=== PATIENT | male | born 1940 | race Caucasian/White ===

== ENCOUNTER 2022-06-21 12:04 | Inpatient (IN) | payer OTHER, MEDICARE ==
[2022-06-21] MEDS ORDERED: GLUCAGON 1 MG/VIAL IM PRN (13:14)
[2022-06-21] MEDS ORDERED: D50W 25 GM/50 ML SYRINGE IV PRN (13:14)
[2022-06-21] MEDS ORDERED: D10W 125 ML IV PRN (13:19)
[2022-06-21] MEDS ORDERED: ALBUTEROL 2.5 MG/3 ML NEB SOL NEB PRN (13:21)
[2022-06-21] MEDS ORDERED: ONDANSETRON 4 MG (ODT) TAB PO PRN (14:00)
[2022-06-21] MEDS ORDERED: DIPHENHYDRAMINE 25 MG TAB/CAP PO PRN (14:00)
[2022-06-21] MEDS ORDERED: POLYETHYL GLY 3350 17 GM/DOSE PO PRN (14:00)
[2022-06-21] MEDS ORDERED: LOPERAMIDE HCL 2 MG CAPSULE PO PRN (14:00)
[2022-06-21] MEDS ORDERED: ONDANSETRON 4 MG/2 ML VIAL IV PRN (14:00)
[2022-06-21] MEDS: LEVALBUTEROL 1.25 MG/3 ML NEB IH SCH ×2 (14:00→20:40)
[2022-06-21] MEDS ORDERED: ACETAMINOPHEN 325 MG TABLET PO PRN (14:00)
[2022-06-21] MEDS: IPRATROPIUM BROM 0.5MG/2.5ML IH SCH ×2 (14:00→20:00)
[2022-06-21] MEDS: FUROSEMIDE 100 MG in NA CHLORIDE 0.9% 90 ML IV SCH (14:24)
[2022-06-21] MEDS: METHYLPREDNISOLONE 40 MG INJ IV SCH ×3 (14:34→23:31)
[2022-06-21 14:37] LABS: Absolute Lymphocytes (CBC) 0.5 K/uL (0.7-4.9); Hematocrit 34.6 % (39.6-49.0); Lymphocytes % 6.8 % (15.3-44.8); MCV 75.9 fL (80-100); MPV 8.1 fL (7.6-11.3); RBC Red Blood Cell Count 4.56 M/uL (4.33-5.43)
[2022-06-21 14:42] LABS: Potassium 3.6 mEq/L (3.5-5.1)
--- NOTE | 2022-06-21 14:53 | RAD REPORT ---
EXAM DESCRIPTION: RAD - Chest Pa And Lat (2 Views) - 06/21/2022 2:44 pm CLINICAL HISTORY: copd COMPARISON: CHEST PA AND LAT 2 VIEW dated 01/11/2009; CHEST PA AND LAT 2 VIEW dated 09/14/2004 FINDINGS: Lines: None. Lungs: Opacities are present the right lung base which are not well defined . Pleural: New small to moderate right and probably tiny left pleural effusions. Cardiac: Cardiomegaly. Mediastinum: Within normal limits. Bones: No acute fractures. Other: None IMPRESSION: Small effusions, right greater than left, of uncertain etiology. There is presumably david st some component of atelectasis due to the flow, however underlying pneumonia or a lesion could also be present. Suggest follow-up imaging to ensure resolution.
[2022-06-21 15:11] LABS: Albumin 3.5 g/dL (3.4-5.0); Bilirubin Direct 0.3 mg/dL (0-0.2); Bilirubin Total 0.8 mg/dL (0.2-1.0); Magnesium 1.3 mg/dL (1.6-2.4); Phosphorus 3.8 mg/dL (2.5-4.9); Protein, Total 6.7 g/dL (6.4-8.2); Thyroid Stimulating Hormone 1.59 uIU/mL (0.358-3.740)
[2022-06-21 16:08] LABS: Specific Gravity 1.012 (1.005-1.030); Urine Bilirubin NEGATIVE (Negative); Urine Blood Negative (Negative); Urine Clarity Clear (Clear); Urine Color Light-Yellow (Yellow); Urine Glucose NEGATIVE (Negative); Urine Protein NEGATIVE (Negative); Urine Urobilinogen Normal (Normal)
--- NOTE | 2022-06-21 16:29 | RAD REPORT ---
EXAM DESCRIPTION: USExtrem Venous W Compress Bil06/21/2022 4:13 pm CLINICAL HISTORY: Leg swelling COMPARISON: none FINDINGS: The common femoral, superficial femoral, greater saphenous, popliteal and posterior tibial veins bilaterally are compressible and demonstrate augmentation. Doppler demonstrates good flow. Grayscale, color and spectral analysis performed on all vessels IMPRESSION: No evidence of deep venous thrombosis involving either lower extremity.
[2022-06-21] MEDS: INSULIN -REGULAR HUMAN 50 UNIT/0.5 ML ML SQ SCH ×2 (16:30→21:07)
[2022-06-21 17:00] LABS: UR MICROALBUMIN 0.6 mg/dL (< 1.9)
[2022-06-21] MEDS ORDERED: HOME MED 1 EA UNK (Fluticasone/Umeclidin/Vilanter [Trelegy Ellipta 100-62.5-25] Blst.W.Dev IH PRN (17:33)
[2022-06-21] MEDS ORDERED: PNEUMOCOCCAL VACCINE 0.5 ML IMVAC ONE (18:00)
[2022-06-21] MEDS: cilostazoL 100 MG TAB PO SCH (21:00)
[2022-06-22] MEDS: IPRATROPIUM BROM 0.5MG/2.5ML IH SCH ×4 (02:00→19:45)
[2022-06-22] MEDS: LEVALBUTEROL 1.25 MG/3 ML NEB IH SCH ×4 (02:00→19:45)
[2022-06-22] MEDS: METHYLPREDNISOLONE 40 MG INJ IV SCH ×3 (06:38→16:57)
[2022-06-22] MEDS: INSULIN -REGULAR HUMAN 50 UNIT/0.5 ML ML SQ SCH ×4 (07:30→20:38)
[2022-06-22] MEDS: CLOPIDOGREL 75 MG TABLET PO SCH (09:00)
[2022-06-22] MEDS: ATORVASTATIN 40 MG TAB PO SCH (09:00)
[2022-06-22] MEDS: PRIMIDONE 50 MG TAB PO SCH (09:00)
[2022-06-22] MEDS: TAMSULOSIN 0.4 MG SR CAP PO SCH (09:00)
[2022-06-22] MEDS: cilostazoL 100 MG TAB PO SCH ×2 (09:00→20:38)
[2022-06-22] MEDS: ENOXAPARIN 30 MG/0.3 ML SQ SCH (10:01)
[2022-06-22] MEDS: FUROSEMIDE 100 MG in NA CHLORIDE 0.9% 90 ML IV SCH (10:04)
--- NOTE | 2022-06-22 11:33 | RAD REPORT ---
EXAM DESCRIPTION: US - Renal Ultrasound-Complete - 06/22/2022 11:19 am CLINICAL HISTORY: MARII Flank pain COMPARISON: <Comparisons> FINDINGS: Both kidneys mildly echogenic. There is evidence of small benign cysts bilaterally. The right kidney measures 9.6 x 5.0 x 3.7 cm. Calcification is seen likely nonobstructing renal calcu vishnu. No hydronephrosis. The left kidney measures 9.6 x 5.0 x 3.8 cm.. No hydronephrosis, focal mass or perinephric fluid. The urinary bladder is incompletely distended without gross abnormality seen. IMPRESSION: Mildly echogenic kidneys suggests underlying medical renal disease. Calcification the right kidney without hydronephrosis probably represents a stone.
--- NOTE | 2022-06-22 12:36 | CON ---
Date of Consultation: 06/22/2022 Reason For Consultation: Elevated BUN and creatinine, fluid management. History Of Present Illness: This is a pleasant 82-year-old gentleman with significant past medical h istory of rheumatoid arthritis on Orencia, COPD, peripheral vascular disease, diabetes complicated wi th neuropathy, no retinopathy, hypertension, hyperlipidemia, the patient was in his regular state of health. According to him over the last 1 year, his shortness of breath getting worse on any activity without significant orthopnea. No chest pain. The patient denied taking nonsteroid. No recent exp osure to IV contrast. The patient found to have elevation in BUN and creatinine. Creatinine 1.8 wit h GFR of 36. For that reason, we have been consulted. Past Medical History: Includes; 1.Diabetes complicated with neuropathy, no retinopathy. 2.Hyperlipidemia. 3.COPD, advanced. 4.PAD. 5.Pulmonary hypertension. 6.Rheumatoid arthritis, on Orencia. 7.Chronic kidney disease. Allergies: NO KNOWN DRUG ALLERGIES. Social History: Ex-smoker. Denied alcohol. Denied drugs abuse. Family History: Positive for hypertension. Review of Systems: Head and Neck: No red eye. No ear pain. GI: No nausea. No vomiting. : No polyuria. No dysuria. No hematuria. Enterprise Account Executive: Not applicable. Respiratory: Has shortness of breath. Cardiovascular: Has decreased exertional tolerance. Endocrine: No polydipsia. Skin: No rash. Neuro: Has neuropathy. Musculoskeletal: No joint pain. Physical Examination: Vital Signs: When I saw the patient; blood pressure 125/70, pulse of 95, afebrile. Chest: Crackles bilateral. Heart: S1, S2. Systolic murmur. Abdomen: Soft, nontender. Extremities: on the leg +1. Neurologic: Alert. No focality. Laboratory Data: Sodium 135, potassium 3.6, bicarb 23, BUN 51, creatinine 1.8, GFR 36, calcium 8.7. WBC 7.5, hemoglobin 11.1. Urinalysis negative for infection. PC ratio 0.07. Renal ultrasound; 9.6 /9.6, no hydronephrosis, echogenic kidney. Chest x-ray, cardiomegaly with congestion. Current Medications: The patient on include Lasix drip, breathing treatment, thiamine, Plavix, Loven ox, atorvastatin, breathing treatment, Solu-Medrol. Assessment And Plan: 1.Acute kidney injury secondary to cardiorenal syndrome/progression of diabetes, nephropathy. To ru le out any rheumatoid arthritis induced with the presence of anemia to rule out any light chain disea se, we will send for full workup including serology and serum protein electrophoresis. With finding on the ultrasound, it looked more chronic. Currently, the patient on the over volume side. I agree with Lasix drip, but I am going to decrease it to 10 mg and we will follow up. Acute kidney injury o n chronic kidney disease. To rule out any autoimmune disease in the presence of rheumatoid arthritis , mostly it is secondary to diabetes nephropathy, hypertension nephrosclerosis, over volume, I am goi ng to go ahead and continue on the Lasix drip and we will decrease it to 10 mg and we will monitor th e patient. 2.Hypertension, controlled, currently blood pressure on the lower side. We will utilize blood press ure for more diuresis. 3.Chronic kidney disease, small size kidney with acute kidney injury as above. We will send for PTH to confirm the chronicity. Continue Lasix and we will follow up. 4.Shortness of breath, multifactorial, secondary to chronic obstructive pulmonary disease exacerbati on more than congestive heart failure. Continue Lasix drip. Continue breathing treatment. We will follow up with primary. 5.Edema in the lower extremity. No significant proteinuria. TSH within normal limit. Possible sec ondary to . I am going to start the patient on spironolactone and we will follow up the ji gordon. 6.Hypokalemia. We will start the patient on spironolactone. 7.Possible pulmonary hypertension. Start spironolactone. MICH/MODL Voice ID: [id number] Report ID: [id number]
--- NOTE | 2022-06-22 12:43 | P.PN ---
Subjective Date of Service: 06/22/22 Chief Complaint: DYSPNEA, EDEMA. Subjective: Improving LOW HAS IMRPOVED SOME. HE HAS SEVERE COPD FROM HEAVY SMOKING AND COR PULMONALE. Review of Systems 10-point ROS is otherwise unremarkable General: Weakness, Malaise Respiratory: Shortness of Breath Physical Examination - Vital Signs Temperature: 97.2 F Blood Pressure: 125/70 Pulse: 95 Respirations: 18 Pulse Ox (%): 97 - Physical Exam General: Oriented x3, Moderate distress HEENT: Atraumatic, PERRLA, EOMI Neck: Supple, JVD not distended Respiratory: Clear to auscultation bilaterally, Normal air movement Cardiovascular: Regular rate/rhythm, Normal S1 S2, Edema Gastrointestinal: Normal bowel sounds, No tenderness Musculoskeletal: No tenderness Integumentary: No rashes Neurological: Normal speech, Normal tone, Normal affect Lymphatics: No axilla or inguinal lymphadenopathy - Studies Laboratory Data (last 24 hrs) 06/21/22 14:13: Phosphorus 3.8, Magnesium 1.3 L, Total Bilirubin 0.8, AST 26, ALT 29, Alkaline Phosphatase 135 H 06/21/22 14:13: APTT 28.0 06/21/22 14:13: Sodium 135 L, Potassium 3.6, BUN 51 H, Creatinine 1.85 H, Glucose 153 H 06/21/22 14:13: WBC 7.50, Hgb 11.1 L, Hct 34.6 L, Plt Count 288 Medications List Reviewed: Yes Assessment And Plan - Current Problems (Diagnosis) (1) Cor pulmonale Current Visit: Yes Status: Acute Plan: LASIX DRIP THIS IS SHORT TERM ANSWER. SUPERVISOR IRRIGATION PROGNOSIS IS POOR. HE WILL CONTINUE TO HAVE THE SYMPTOMS. HE IS AWARE. (2) Acute on chronic renal failure Current Visit: Yes Status: Acute Plan: DR. CHANCE Espinoza ON CASE HE AGREES WITH THERAPY SONGOGRM DONE. (3) CKD (chronic kidney disease) stage 3, GFR 30-59 ml/min Current Visit: Yes Status: Chronic Plan: CREAT ABOUT 1.5 TO 2. Orders (last 24 hrs) 06/21/22 Lunch 60g Consistent Carbohydrate (ADA 1800/2000) [DIET] 06/21/22 13:03 Cardiac Monitoring (telemetry) CONT Glucose Monitoring ACHS Magnesium Replacement 0600 Potassium Replacement 0600 SCD [Sequential Compression Device] NOW Oxygen Nasal Cannula 2 lpm 06/21/22 13:06 EKG Electrocardiogram [EKG] Stat 06/21/22 13:14 Glucagon [Glucagen] 1 mg IM 1X PRN 06/21/22 13:15 Methylpred Na Suc [Solu-Medrol] 40 mg IV Q6HR 06/21/22 13:19 D10w [Dextrose 10% Water IV Soln.] 125 ml IV PRN 06/21/22 13:30 Furosemide [Lasix] 100 mg Na Chloride 0.9% [Sodium Chloride] 90 ml IV Q20H 06/21/22 14:00 Acetaminophen [Tylenol -Tablet] 650 mg PO Q6HP PRN Diphenhydramine [Benadryl Tab/Cap] 25 mg PO BEDTIME PRN PRN Ipratropium Neb [Atrovent Neb] 0.5 mg IH [id number] Levalbuterol [Xopenex] 1.25 mg IH [id number] Loperamide [Imodium] 4 mg PO Q4HP PRN Ondansetron [Zofran] 4 mg IV Q6HP PRN Ondansetron [Zofran] 4 mg PO Q6HP PRN Polyethyl Gly 3350 [Glycolax] 17 gm PO BEDTIME PRN PRN 06/21/22 14:13 Vitamin D,1,25 Dihydroxy Routine 06/21/22 16:30 Insulin -Regular Human [Novolin -R] See Protocol SQ ACHS 06/21/22 17:33 Fluticasone/Umeclidin/Vilanter [Trelegy Ellipta 100-62.5-25] 1 puff IH PRN PRN 06/21/22 18:20 Blood Culture Stat 06/21/22 21:00 cilostazoL [Pletal] 100 mg PO BID 06/22/22 05:52 SBAR Routine 06/22/22 09:00 Atorvastatin Calcium [Lipitor] 40 mg PO DAILY Clopidogrel Bisulfate [Plavix] 75 mg PO DAILY Enoxaparin Sodium [Lovenox 30 MG INJ] 30 mg SQ DAILY Primidone [Mysoline] 50 mg PO DAILY Tamsulosin [Flomax] 0.4 mg PO DAILY 06/22/22 13:05 Basic Metabolic Panel DAILY CBC with Automated Diff DAILY 06/23/22 13:05 Basic Metabolic Panel DAILY CBC with Automated Diff DAILY 06/24/22 13:05 Basic Metabolic Panel DAILY CBC with Automated Diff DAILY 06/25/22 13:05 Basic Metabolic Panel DAILY CBC with Automated Diff DAILY
--- NOTE | 2022-06-22 12:51 | ECHO ---
HEIGHT: 5 ft 10 in WEIGHT: 151 lb 3.2 oz DATE OF STUDY: 06/22/[address]: Jb Martinez MD 2-DIMENSIONAL: YES M.MODE: YES DOPPLER: YES COLOR FLOW: YES TDS: NO PORTABLE: YES DEFINITY: NO BUBBLE STUDY: NO DIAGNOSIS: DYSPNEA CARDIAC HISTORY: CATHERIZATION: SURGERY: PROSTHETIC VALVE: PACEMAKER: MEASUREMENTS (cm) DIASTOLIC (NORMALS) SYSTOLIC (NORMALS) IVSd 1.2 (0.6-1.2) LA Diam 3.7 (1.9-4.0) LVEF 11% LVIDd 5.0 (3.5-5.7) LVIDs 4.8 (2.0-3.5) %FS 5% LVPWd 1.0 (0.6-1.2) Ao Diam 2.7 (2.0-3.7) 2 DIMENSIONAL ASSESSMENT: RIGHT ATRIUM: NORMAL LEFT ATRIUM: NORMAL RIGHT VENTRICLE: NORMAL LEFT VENTRICLE: NORMAL SIZE TRICUSPID VALVE: NORMAL MITRAL VALVE: MITRAL ANNULAR CALCIFICATION PULMONIC VALVE: NORMAL AORTIC VALVE: STENOTIC PERICARDIAL EFFUSION: NONE AORTIC ROOT: NORMAL LEFT VENTRICULAR WALL MOTION: SEVERE GLOBAL HYPOKINESIS. DOPPLER/COLOR FLOW: SEVERE AORTIC STENOSIS. AORTIC VALVE AREA 0.6 CENTIMETERS SQUARED. MODERATE MITRAL AND TRICUSPID REGURGITATION. COMMENTS: 1. SEVERE GLOBAL HYPOKINESIS. 2. LEFT VENTRICULAR EJECTION FRACTION 11% 3. MODERATE MITRAL AND TRICUSPID REGURGITATION. 4. SEVERE AORTIC STENOSIS. AORTIC VALVE AREA 0.6 CENTIMETERS SQUARED. 5. MODERATE TO SEVERE PULMONARY HYPERTENSION. TECHNOLOGIST: Krystina ROCHE
[2022-06-22] MEDS: TRAZODONE 50 MG TABLET PO SCH (22:56)
[2022-06-22 23:43] LABS: Specific Gravity 1.013 (1.005-1.030); Urine Bilirubin NEGATIVE (Negative); Urine Blood Negative (Negative); Urine Clarity Clear (Clear); Urine Color Yellow (Yellow); Urine Glucose NEGATIVE (Negative); Urine Protein NEGATIVE (Negative); Urine Urobilinogen Normal (Normal)
[2022-06-22 23:50] LABS: UR PROTEIN 18.4 mg/dL (<11.9); Urine Protein/Creatinine Ratio 0.2 ratio (<0.15)
[2022-06-23] MEDS: METHYLPREDNISOLONE 40 MG INJ IV SCH ×5 (00:29→23:32)
[2022-06-23] MEDS: IPRATROPIUM BROM 0.5MG/2.5ML IH SCH ×4 (02:00→20:45)
[2022-06-23] MEDS: LEVALBUTEROL 1.25 MG/3 ML NEB IH SCH ×4 (02:00→20:45)
[2022-06-23 06:28] LABS: Absolute Lymphocytes (CBC) 0.4 K/uL (0.7-4.9); Hematocrit 30.9 % (39.6-49.0); MCV 74.8 fL (80-100); MPV 8.1 fL (7.6-11.3); RBC Red Blood Cell Count 4.13 M/uL (4.33-5.43)
[2022-06-23 07:09] LABS: Rheumatoid Factor NEG (NEG)
[2022-06-23 07:14] LABS: Albumin 3.1 g/dL (3.4-5.0); Ferritin 25.7 ng/mL (26-388); Phosphorus 5.1 mg/dL (2.5-4.9); Potassium 3.4 mEq/L (3.5-5.1); Thyroid Stimulating Hormone 0.887 uIU/mL (0.358-3.740); Uric Acid 13.4 mg/dL (3.5-7.2)
[2022-06-23] MEDS: cilostazoL 100 MG TAB PO SCH ×2 (09:00→20:50)
[2022-06-23] MEDS: PRIMIDONE 50 MG TAB PO SCH (09:00)
[2022-06-23] MEDS: CLOPIDOGREL 75 MG TABLET PO SCH (09:00)
[2022-06-23] MEDS: ATORVASTATIN 40 MG TAB PO SCH (09:00)
[2022-06-23] MEDS ORDERED: POTASSIUM CL SA 10 MEQ TAB PO ONE (09:00)
[2022-06-23] MEDS: TAMSULOSIN 0.4 MG SR CAP PO SCH (09:00)
[2022-06-23 09:02] LABS: Absolute Lymphocytes (CBC) 0.5 K/uL (0.7-4.9); Lymphocytes % 5.5 % (15.3-44.8); MCV 75.2 fL (80-100); MPV 8.2 fL (7.6-11.3); RBC Red Blood Cell Count 4.66 M/uL (4.33-5.43)
[2022-06-23 09:13] LABS: Potassium 3.8 mEq/L (3.5-5.1)
[2022-06-23 10:02] LABS: Blood Morphology Comment NOTED (NOT SEEN); Platelet Estimate ADEQ; Poikilocytosis 2+; Polychromasia SLIGHT; White Blood Cell Scan OK (OK)
[2022-06-23 10:03] LABS: Burr Cells 2+
[2022-06-23] MEDS: FUROSEMIDE 100 MG in NA CHLORIDE 0.9% 90 ML IV SCH (10:03)
[2022-06-23] MEDS: INSULIN -REGULAR HUMAN 50 UNIT/0.5 ML ML SQ SCH ×4 (10:15→20:49)
[2022-06-23] MEDS: SPIRONOLACTONE 25 MG TABLET PO SCH (10:15)
[2022-06-23] MEDS: ENOXAPARIN 30 MG/0.3 ML SQ SCH (10:16)
--- NOTE | 2022-06-23 12:39 | P.PN ---
Subjective Date of Service: 06/23/22 Chief Complaint: DYSPNEA, EDEMA. Subjective: Other (he reports no increase in shortness of breath) Physical Examination - Vital Signs Temperature: 97.8 F Blood Pressure: 101/66 Pulse: 97 Respirations: 14 Pulse Ox (%): 98 - Physical Exam General: Other (chronically ill-appearing) HEENT: Atraumatic, Normocephalic Neck: Supple Respiratory: Other (symmetric chest expansion) Cardiovascular: No rubs, No murmurs Gastrointestinal: Soft and benign, No guarding Musculoskeletal: No clubbing Integumentary: No warmth Neurological: Normal tone Urinary: Other (no bladder distention) External genitalia: Deferred Rectal: Deferred - Studies Laboratory Data (last 24 hrs) 06/23/22 08:47: Magnesium 1.5 L 06/23/22 08:47: Sodium 131 L, Potassium 3.8, BUN 72 H, Creatinine 2.36 H, Glucose 249 H 06/23/22 08:47: WBC 9.30, Hgb 11.1 L D, Hct 35.0 L, Plt Count 282 06/23/22 05:35: Sodium 134 L, Potassium 3.4 L, BUN 70 H, Creatinine 2.14 H, Glucose 140 H, Uric Acid 13.4 H, Phosphorus 5.1 H 06/23/22 05:35: WBC 6.60, Hgb 9.8 L, Hct 30.9 L, Plt Count 239 Medications List Reviewed: Yes Assessment And Plan - Plan 1. Acute kidney injury secondary to cardiorenal syndrome/progression of diabetic nephropathy. continue Lasix. Monitor renal panel. 2. CKD3. Monitor renal panel. 3. Htn. BP low normal. Diuretics via lasix + brianna. 4. BLE edema. Lasix + brianna. Low Na diet < 2g/day. 5. Chronic systolic heart failure, severe , severe pulmonary hypertension. TTE on 06/22/2022 showed low LVEF at 11%, severe aortic stenosis, severe pulmonary hypertension. Started on spironolactone. Follow-up random urine chemistry to assess for secondary hyperaldosteronism. Do not restrict by mouth fluid intake unless he develops hyponatremia less than 130 meq per liter to minimize MARII from diuretics. 6. Anemia. Monitor CBC.
[2022-06-23 15:21] LABS: Potassium 4.3 mEq/L (3.5-5.1)
[2022-06-23 15:26] VITALS: BMI 22.1
[2022-06-23] MEDS ORDERED: SIMETHICONE 80 MG TAB PO PRN (15:56)
[2022-06-23] MEDS ORDERED: Magnesium Sulfate 2gm IVPB 2 G/50 ML BAG IV ONE (16:00)
[2022-06-23] MEDS: TRAZODONE 50 MG TABLET PO SCH (20:49)
[2022-06-23] MEDS ORDERED: TRAZODONE 50 MG TABLET PO SCH (21:00)
--- NOTE | 2022-06-23 22:11 | P.PN ---
Subjective Date of Service: 06/23/22 Chief Complaint: DYSPNEA, EDEMA. Subjective: Worsening LOW HAS IMRPOVED SOME. HE HAS SEVERE COPD FROM HEAVY SMOKING AND COR PULMONALE. LOW IS SHORT OF BREATH AND NOT GETTING BETTER. Review of Systems 10-point ROS is otherwise unremarkable Respiratory: Shortness of Breath, SOB with Excertion Physical Examination - Vital Signs Temperature: 97.8 F Blood Pressure: 121/83 Pulse: 120 Respirations: 22 Pulse Ox (%): 98 - Physical Exam General: Oriented x3, Moderate distress HEENT: Atraumatic, PERRLA, EOMI Neck: Supple, JVD not distended Respiratory: Diminished Cardiovascular: Regular rate/rhythm, Normal S1 S2 Gastrointestinal: Normal bowel sounds, No tenderness Musculoskeletal: No tenderness Integumentary: No rashes Neurological: Normal speech, Normal tone, Normal affect Lymphatics: No axilla or inguinal lymphadenopathy - Studies Laboratory Data (last 24 hrs) 06/23/22 14:56: Sodium 130 L, Potassium 4.3 D, BUN 78 H, Creatinine 2.76 H, Glucose 264 H 06/23/22 08:47: Magnesium 1.5 L 06/23/22 08:47: Sodium 131 L, Potassium 3.8, BUN 72 H, Creatinine 2.36 H, Glucose 249 H 06/23/22 08:47: WBC 9.30, Hgb 11.1 L D, Hct 35.0 L, Plt Count 282 06/23/22 05:35: Sodium 134 L, Potassium 3.4 L, BUN 70 H, Creatinine 2.14 H, Glucose 140 H, Uric Acid 13.4 H, Phosphorus 5.1 H 06/23/22 05:35: WBC 6.60, Hgb 9.8 L, Hct 30.9 L, Plt Count 239 Medications List Reviewed: Yes Assessment And Plan - Current Problems (Diagnosis) (1) Cor pulmonale Current Visit: Yes Status: Acute Plan: LASIX DRKATELYN THIS IS SHORT TERM ANSWER. [facility] PROGNOSIS IS POOR. HE WILL CONTINUE TO HAVE THE SYMPTOMS. HE IS AWARE. (2) Acute on chronic renal failure Current Visit: Yes Status: Acute Plan: DR. CHANCE Espinoza ON CASE HE AGREES WITH THERAPY SONGOGRM DONE. (3) CKD (chronic kidney disease) stage 3, GFR 30-59 ml/min Current Visit: Yes Status: Chronic Plan: CREAT ABOUT 1.5 TO 2. Orders (last 24 hrs) 06/21/22 Lunch 60g Consistent Carbohydrate (ADA ) [DIET] 06/21/22 13:03 Cardiac Monitoring (telemetry) CONT Glucose Monitoring ACHS Magnesium Replacement 0600 Potassium Replacement 0600 SCD [Sequential Compression Device] NOW Oxygen Nasal Cannula 2 lpm 06/21/22 13:06 EKG Electrocardiogram [EKG] Stat 06/21/22 13:14 Glucagon [Glucagen] 1 mg IM 1X PRN 06/21/22 13:15 Methylpred Na Suc [Solu-Medrol] 40 mg IV Q6HR 06/21/22 13:19 D10w [Dextrose 10% Water IV Soln.] 125 ml IV PRN 06/21/22 13:30 Furosemide [Lasix] 100 mg Na Chloride 0.9% [Sodium Chloride] 90 ml IV Q20H 06/21/22 14:00 Acetaminophen [Tylenol -Tablet] 650 mg PO Q6HP PRN Diphenhydramine [Benadryl Tab/Cap] 25 mg PO BEDTIME PRN PRN Ipratropium Neb [Atrovent Neb] 0.5 mg IH [id number] Levalbuterol [Xopenex] 1.25 mg IH [id number] Loperamide [Imodium] 4 mg PO Q4HP PRN Ondansetron [Zofran] 4 mg IV Q6HP PRN Ondansetron [Zofran] 4 mg PO Q6HP PRN Polyethyl Gly 3350 [Glycolax] 17 gm PO BEDTIME PRN PRN 06/21/22 14:13 Vitamin D,1,25 Dihydroxy Routine 06/21/22 16:30 Insulin -Regular Human [Novolin -R] See Protocol SQ ACHS 06/21/22 17:33 Fluticasone/Umeclidin/Vilanter [Trelegy Ellipta 100-62.5-25] 1 puff IH PRN PRN 06/21/22 18:20 Blood Culture Stat 06/21/22 21:00 cilostazoL [Pletal] 100 mg PO BID 06/22/22 05:52 SBAR Routine 06/22/22 09:00 Atorvastatin Calcium [Lipitor] 40 mg PO DAILY Clopidogrel Bisulfate [Plavix] 75 mg PO DAILY Enoxaparin Sodium [Lovenox 30 MG INJ] 30 mg SQ DAILY Primidone [Mysoline] 50 mg PO DAILY Tamsulosin [Flomax] 0.4 mg PO DAILY 06/22/22 13:05 Basic Metabolic Panel DAILY CBC with Automated Diff DAILY 06/23/22 13:05 Basic Metabolic Panel DAILY CBC with Automated Diff DAILY 06/24/22 13:05 Basic Metabolic Panel DAILY CBC with Automated Diff DAILY 06/25/22 13:05 Basic Metabolic Panel DAILY CBC with Automated Diff DAILY (4) Aortic stenosis Current Visit: Yes Status: Chronic Plan: CRITICAL. 0.6 CM SQ. HE IS NOT SURGICAL CANDIDATE. HE MAY NOT DO WELL WITH SURGERY OR PROCEDURE. HE KNOWS HE WILL GO INTO RENAL FAILURE AND ESRD WITH HD. HE WILL DECIDE BY AM.
[2022-06-24] MEDS: LEVALBUTEROL 1.25 MG/3 ML NEB IH SCH ×2 (01:55→08:03)
[2022-06-24] MEDS: IPRATROPIUM BROM 0.5MG/2.5ML IH SCH ×2 (01:55→08:03)
[2022-06-24 03:31] LABS: Absolute Lymphocytes (CBC) 0.2 K/uL (0.7-4.9); Hematocrit 32.4 % (39.6-49.0); Lymphocytes % 2.4 % (15.3-44.8); MCV 75.1 fL (80-100); MPV 8.1 fL (7.6-11.3); RBC Red Blood Cell Count 4.32 M/uL (4.33-5.43)
[2022-06-24 04:01] LABS: Albumin 3.2 g/dL (3.4-5.0); Phosphorus 5.2 mg/dL (2.5-4.9); Potassium 4.1 mEq/L (3.5-5.1)
[2022-06-24] MEDS: METHYLPREDNISOLONE 40 MG INJ IV SCH (06:19)
[2022-06-24] MEDS: INSULIN -REGULAR HUMAN 50 UNIT/0.5 ML ML SQ SCH (07:30)
[2022-06-24 08:25] VITALS: O2SAT 95
[2022-06-24 08:49] VITALS: BP 96/59; TEMP 98
[2022-06-24] MEDS ORDERED: FUROSEMIDE 40 MG TABLET PO SCH (09:00)
[2022-06-24] MEDS: ATORVASTATIN 40 MG TAB PO SCH (09:00)
[2022-06-24] MEDS: cilostazoL 100 MG TAB PO SCH (09:00)
[2022-06-24] MEDS: TAMSULOSIN 0.4 MG SR CAP PO SCH (09:00)
[2022-06-24] MEDS: PRIMIDONE 50 MG TAB PO SCH (09:00)
[2022-06-24] MEDS: CLOPIDOGREL 75 MG TABLET PO SCH (09:00)
[2022-06-24] MEDS: SPIRONOLACTONE 25 MG TABLET PO SCH (09:00)
[2022-06-24] MEDS: ENOXAPARIN 30 MG/0.3 ML SQ SCH (09:29)
--- NOTE | 2022-06-24 09:44 | P.DS ---
Admission Date: 06/23/22 Discharge Date: 06/24/22 Disposition: ROUTINE DISCHARGE Discharge Condition: SERIOUS Reason for Admission: DYSPNEA, EDEMA. - Problems (1) Cor pulmonale Current Visit: Yes Status: Acute (2) Acute on chronic renal failure Current Visit: Yes Status: Acute (3) CKD (chronic kidney disease) stage 3, GFR 30-59 ml/min Current Visit: Yes Status: Chronic (4) Aortic stenosis Current Visit: Yes Status: Chronic Brief History of Present Illness: Cullen is a former heavy smoker who has severe copd, cor pulmonale and on echo we found he has critical aortic stenosis. I explained to him that TAVR procedure can be done but during that he most likely will go into severe renal failure and may end up on dialysis. It is still possible to do. He says at 82 with severe copd he does not want anything done. He is stable to go home with poor prognosis. He has DNR status at home. Vital Signs/Physical Exam: Temp Pulse Resp BP Pulse Ox 98.0 F 104 H 18 96/59 L 93 06/24/22 08:00 06/24/22 08:00 06/24/22 08:00 06/24/22 08:00 06/24/22 08:00 Laboratory Data at Discharge: WBC 9.50 thou/uL (4.3-10.9) 06/24/22 03:12 Hgb 10.5 g/dL (13.6-17.9) L 06/24/22 03:12 Hct 32.4 % (39.6-49.0) L 06/24/22 03:12 Plt Count 230 thou/uL (152-406) 06/24/22 03:12 APTT 28.0 SECONDS (24.3-36.9) 06/21/22 14:13 Sodium Cancelled 06/24/22 05:00 Potassium Cancelled 06/24/22 05:00 BUN Cancelled 06/24/22 05:00 Creatinine Cancelled 06/24/22 05:00 Glucose Cancelled 06/24/22 05:00 Uric Acid 13.4 mg/dL (3.5-7.2) H 06/23/22 05:35 Phosphorus 5.2 mg/dL (2.5-4.9) H 06/24/22 03:12 Magnesium 2.0 mg/dL (1.6-2.4) 06/24/22 03:12 Total Bilirubin 0.8 mg/dL (0.2-1.0) 06/21/22 14:13 AST 26 U/L (15-37) 06/21/22 14:13 ALT 29 U/L (16-61) 06/21/22 14:13 Alkaline Phosphatase 135 U/L (45-117) H 06/21/22 14:13 Home Medications: Albuterol Sulfate 1.25 mg NEB PRN PRN 06/21/22 Atorvastatin Calcium 40 mg PO DAILY 06/21/22 Clopidogrel Bisulfate [Plavix*] 75 mg PO DAILY 06/21/22 Fluticasone/Umeclidin/Vilanter [Trelegy Ellipta 100-62.5-25] 1 puff IH PRN PRN 06/21/22 Furosemide 40 mg PO DAILY 06/21/22 Prednisone [Sterapred Ds] 10 mg PO DAILY 06/21/22 Primidone 50 mg PO DAILY 06/21/22 Spironolactone 25 mg PO DAILY 06/21/22 Tamsulosin [Flomax*] 0.4 mg PO DAILY 06/21/22 cilostazoL [Cilostazol] 100 mg PO BID 06/21/22 Trazodone [Desyrel*] 50 mg PO BEDTIME #90 06/24/22 New Medications: Trazodone [Desyrel*] 50 mg PO BEDTIME #90
[2022-06-26 12:08] LABS: Vitamin D 1,25-Dihydroxy Total 25 pg/mL (18-72); Vitamin D,1,25-OH2, D2 <8 pg/mL
[2022-06-27 22:01] LABS: Albumin, (SPE) 3.2 g/dL (3.8-4.8); Alpha-1-Globulins 0.4 g/dL (0.2-0.3); Alpha-2-Globulins 0.5 g/dL (0.5-0.9); Gamma Globulins 0.6 g/dL (0.8-1.7); INTERPRETATION REPORT
== END 2022-06-24 10:45 | disposition home or self-care (01) | DRG 191 ==
LOC: 2ND 12:04 → OBSVTOIN 06-23 13:39
PROVIDERS: ADMIT Internal Medicine; ATTEND Internal Medicine
DX: J44.1 Chronic obstructive pulmonary disease with (acute) exacerbation (principal); I13.0 Hypertensive heart and chronic kidney disease with heart failure and stage 1 through stage 4 chronic kidney disease, or unspecified chronic kidney disease; I50.22 Chronic systolic (congestive) heart failure; N17.9 Acute kidney failure, unspecified; N18.30 Chronic kidney disease, stage 3 unspecified; E11.22 Type 2 diabetes mellitus with diabetic chronic kidney disease; E11.51 Type 2 diabetes mellitus with diabetic peripheral angiopathy without gangrene; E11.40 Type 2 diabetes mellitus with diabetic neuropathy, unspecified; D63.1 Anemia in chronic kidney disease; M06.9 Rheumatoid arthritis, unspecified; E78.5 Hyperlipidemia, unspecified; I27.81 Cor pulmonale (chronic); E87.6 Hypokalemia; I27.20 Pulmonary hypertension, unspecified; I35.0 Nonrheumatic aortic (valve) stenosis; Z66 Do not resuscitate; Z79.02 Long term (current) use of antithrombotics/antiplatelets; Z85.51 Personal history of malignant neoplasm of bladder; Z87.891 Personal history of nicotine dependence; Z79.52 Long term (current) use of systemic steroids; Z79.899 Other long term (current) drug therapy
CPT/HCPCS: 36415; 71046; 76770; 80048; 80069; 80076; 81003; 82043; 82550; 82570; 82607; 82652; 82728; 82947; 83036; 83520; 83540; 83735; 83970; 84100; 84156; 84165; 84443; 84466; 84550; 85025; 85730; 86021; 86038; 86225; 86430; 87040; 93306; 93970; 94640; G0378; J1650; J1815; J2920; J3475; J7614; J7644